=== PATIENT | male | born 1955 | race Caucasian/White ===

== ENCOUNTER 2024-03-21 15:53 | Outpatient (AMB) | payer OTHER, MEDICARE, SELFPAY ==
--- NOTE | 2024-03-21 15:56 | AM.OFFWIN_ITS ---
Intake Vital Signs 3 03/21/24 15:57 Height 5 ft 9 in Weight 220 lb BMI 32.5 BP 144/80 H Blood Pressure Location Rt brachial Position Sitting Pulse 78 Pulse Source Pulse Oximeter Temp 97.9 F Temp Source Oral Pulse Oximetry (%) 98 Intake Visit Reasons: EP-lt hand tip finger cut Intake Note: patient is here due to cut on top of left hand finger, patient was cutting kale and got the tip of his finger. he states last tdap was within the lat [address] MU[facility]OZ at [facility]. Allergies No Known Allergies Allergy (Verified 03/21/24 15:55) Do you need a note to return to daycare/school/sports/work: No HPI HPI Comments 2 History of Present Illness0 Details Patient is a 69-year-old male coming in after he accidentally cut the tip of his left ring finger off while chopping Kale for soup just prior to his arrival here. He states it will not stop bleeding but he denies being on a blood thinner. He tells me his last tetanus was within the last 5-10 years at his primary care doctor's office, Dr. Muñoz. Review of Systems Const All systems reviewed & are unremarkable except as noted in HPI and below Physical Exam Vital Signs: Last Vital Signs Temp 97.9 F 03/21/24 15:57 Pulse 78 03/21/24 15:57 BP 144/80 H 03/21/24 15:57 Pulse Ox 98 03/21/24 15:57 BMI result Body Mass Index 32.5 Const General: cooperative, healthy appearing, comfortable, no acute distress and well developed Orientation/consciousness: patient oriented x3 Limitations: no limitations HEENT Head: Yes normal to inspection Ears: hearing grossly normal bilaterally General nose exam: Normal external nose present Face and sinus: Yes normal facial exam Eyes General: appearance normal, both eyes and all related structures Neck Neck: Yes normal visual inspection and Yes full ROM Resp Effort & Inspection: normal respiratory effort and able to speak in complete sentences Neuro General: patient oriented x3 Extrem Left upper extremity: hand Hand/finger images: 2 1. tip of left 4th digit missing, at an angle, nail involved, no bony involvement, full ROM; bleeding controlled with pressure bandage and Surgicel Assessment & Plan Assessment & Plan (1) Finger amputation, traumatic: Code(s): S68.119A - Complete traumatic metacarpophalangeal amputation of unspecified finger, initial encounter Qualifiers: Encounter type: initial encounter Qualified Code(s): S68.119A - Complete traumatic metacarpophalangeal amputation of unspecified finger, initial encounter Plan: Tip of finger amputated with the nail, no bony involvement, no antibiotics indicated, patient states his Tdap is up-to-date and declined Tdap today. Bleeding controlled with pressure bandage and Surgicel after failing to control it with silver nitrate. Recommended he keep it on overnight and try to remove it in the morning. If it bleeds through, recommended he go to the emergency department for suture but it appears to be controlled at this time. Plan See above Coding Level of Care Code New Pt Level 3 (57299) Diagnoses Traumatic amputation of finger, initial encounter S68.119A Encounter type: initial encounter
[2024-03-21 15:57] VITALS: BP 144/80; PULSE 78; TEMP 36.6; O2SAT 98; BMI 32.5
== END 2024-03-21 16:28 | disposition home or self-care (01) ==
PROVIDERS: PCP Internal Medicine; Visit Provider Physician Assistant
DX: S68.115A Complete traumatic metacarpophalangeal amputation of left ring finger, initial encounter (principal)

== ENCOUNTER → 2024-03-21 15:53 | Outpatient (BNVA) | payer OTHER, MEDICARE, SELFPAY | PROVIDERS: PCP Internal Medicine | DX: S68.625A Partial traumatic transphalangeal amputation of left ring finger, initial encounter (principal) ==